=== PATIENT | male | born 1985 | race Caucasian/White ===

== ENCOUNTER 2016-07-27 14:26 | Emergency (ER) | payer SELFPAY ==
[~2016-07-27] VITALS: Ht 172.7 cm; Wt 63.5 kg
[2016-07-27] MEDS ORDERED: NKM (14:58)
[2016-07-27 15:19] VITALS: BP 142/82
--- NOTE | 2016-07-27 15:53 | Emergency Room Report ---
History of Present Illness General Chief Complaint: Skin Rash/Abscess Source: Patient Present Illness HPI 30-year-old male presents the emergency department complaining of scrotal infection x2 weeks. Patient erythema, swelling, pimples about the right side of the scrotum and right thigh. he reports history of MRSA. Patient denies fevers or chills patient denies recent unprotected intercourse patient denies penile discharge, hematuria, dysuria. he reports recent travel to the [facility]. Denies testicular pain. Pt. rates his pain as 6/10 in severity and describes burning/irritative symptoms. denies hx of STI. he denies abdominal pain, nausea or vomiting. denies immune compromise. Denies CP, Palpitations, LOC , AMS, dizziness, Changes in Vision, Sensation, paresthesias, or a sudden severe headache. Allergies: Coded Allergies: No Known Allergies (Unverified , 07/27/16) Patient History Past Medical History: see triage record Past Surgical History: none Pertinent Family History: none Immunizations: UTD Reviewed Nursing Documentation: PMH: Agreed, PSxH: Agreed Review of Systems All Other Systems: negative except mentioned in HPI Physical Exam Vital Signs Date Time Temp Pulse Resp B/P Pulse Ox O2 Delivery O2 Flow Rate FiO2 07/27/16 14:50 98.1 95 16 142/82 100 Room Air Sp02 EP Interpretation: reviewed, normal General Appearance: no apparent distress, alert, GCS 15, non-toxic Head: normocephalic, atraumatic Eyes: bilateral eye PERRL, bilateral eye normal inspection ENT: hearing grossly normal, normal pharynx, no angioedema, normal voice Neck: full range of motion, supple/symm/no masses Respiratory: chest non-tender, lungs clear, normal breath sounds, speaking full sentences Cardiovascular #1: regular rate, rhythm, no edema Gastrointestinal: normal bowel sounds, non tender, soft, no guarding, no rebound Rectal: deferred Genitourinary: normal inspection, no CVA tenderness Musculoskeletal: back normal, gait/station normal, normal range of motion, non- tender, no calf tenderness Neurologic: alert, oriented x3, responsive, motor strength/tone normal, sensory intact, speech normal Psychiatric: judgement/insight normal, memory normal, mood/affect normal, no suicidal/homicidal ideation Skin: normal color, no rash, warm/dry, well hydrated, other - Multiple pustules noted on the right inner thigh in addition to inguinal area and on the right side of the testicle. There is no testicular pain or swelling, mild swelling to the skin in the right inguinal area. No increased temperature palpation, each pustule has surrounding erythema. Tender palpable right inguinal lymphadenopathy. Lymphatic: inguinal node tender (R) Medical Decision Making PA Attestation Dr. gamez is my supervising Physician whom patient management has been discussed with. Diagnostic Impression: Primary Impression: Pustular folliculitis Additional Impression: Staphylococcus aureus superficial folliculitis ER Course Pt. presents to the ED c/o Skin infection of the right groin/ testicle and thigh x 2 weeks. with hx of MRSA. Ddx considered but are not limited to cellulitis, folliculitis, epididymitis, torsion, STI, LGV, shingles, herpes Vital signs: are WNL, pt. is afebrile H&PE are most consistent with folliculitis. non vesicular or ulcerative in appearance viral infection not suspected at this time with current presentation. ORDERS: none required at this time, the diagnosis is clinical ED INTERVENTIONS: -500mg Keflex -500mg Bactrim -Petrolatum Gauze and wound dressing applied by oracle technical developer. DISCHARGE: At this time pt. is stable for d/c to home. Will provide printed patient care instructions, and any necessary prescriptions. Care plan and follow up instructions have been discussed with the patient prior to discharge. Last Vital Signs Date Time Temp Pulse Resp B/P Pulse Ox O2 Delivery O2 Flow Rate FiO2 07/27/16 15:19 98.1 80 16 142/82 100 Room Air Disposition: HOME, SELF-CARE Condition: Stable Scripts Bacitracin/Polymyxin B Sulfate (BACITRACIN-POLYMYXIN OINTMENT) 28.35 Gm Oint...g. 1 APPLIC TP BID, #28.3 GM Prov: Radha Gant P.A. 07/27/16 Acetaminophen* (TYLENOL EXTRA STRENGTH*) 500 Mg Tablet 500 MG ORAL Q6H, #30 TAB 0 Refills Prov: Radha Gant P.A. 07/27/16 Trimethoprim/Sulfamethoxazole 160/800* (BACTRIM DS TABLET*) 1 Each Tablet 1 TAB ORAL DAILY for 7 Days, #14 TAB Prov: Radha Gant P.A. 07/27/16 Cephalexin* (KEFLEX*) 500 Mg Capsule 500 MG ORAL EVERY 12 HOURS for 7 Days, #14 CAP 0 Refills Prov: Radha Gant 07/27/16 Referrals: NOT CHOSEN IPA/MD,REFERRING (PCP) Patient Instructions: Folliculitis Additional Instructions: Take medications as directed. Follow up with PCP in 3-5 days Return sooner to ED if new symptoms occur, or current symptoms become worse. Radha Gant Jul 27, 2016 15:53
[2016-07-27] MEDS ORDERED: CEPHALEXIN500 MG ORAL (15:54)
[2016-07-27] MEDS ORDERED: BACTRIM DS TAB1 EAC1 ORAL (15:55)
[2016-07-27] MEDS ORDERED: Cephalexin 500mg cap ORAL ONE (16:00)
[2016-07-27] MEDS ORDERED: Bactrim DS (160mg/800mg) tab ORAL ONE (16:00)
[2016-07-27 16:05] VITALS: BP 142/82
[2016-07-27] MEDS ORDERED: TYLENOL EXTRA500 MG ORAL (16:10)
[2016-07-27] MEDS ORDERED: BACITRACIN-P28.35 GM TP (16:10)
== END 2016-07-27 16:15 | disposition home or self-care (01) ==
LOC: EMR 15:37
DX: L01.02 Bockhart's impetigo (principal); L73.8 Other specified follicular disorders
CPT/HCPCS: 99282

== ENCOUNTER 2016-08-18 16:37 | Emergency (ER) | payer SELFPAY ==
[~2016-08-18] VITALS: Ht 175.3 cm; Wt 65.8 kg
[~2016-08-18 16:37] MED LIST: BACITRACIN-P28.35 GM TP; BACTRIM DS TAB1 EAC1 ORAL; CEPHALEXIN500 MG ORAL; NKM; TYLENOL EXTRA500 MG ORAL
[2016-08-18 16:52] VITALS: BP 144/89
--- NOTE | 2016-08-18 17:25 | Emergency Room Report ---
History of Present Illness General Chief Complaint: Allergic Reaction Source: Patient Present Illness HPI This patient states that he feels anxious and short of breath. He is really unable to give and articulate history. He does admit that he has been doing "Tea" (when I looked this up this means methamphetamine). He states that he believes he has tracers in his body. He is paranoid. He has no other complaints. Allergies: Coded Allergies: Bumble Bee (Verified Allergy, Unknown, 08/18/16) Honey Bee (Verified Allergy, Unknown, 08/18/16) Patient History Past Surgical History: none Social History: Reports: drug use Reviewed Nursing Documentation: PMH: Agreed, PSxH: Agreed Review of Systems All Other Systems: negative except mentioned in HPI Physical Exam Vital Signs Date Time Temp Pulse Resp B/P Pulse Ox O2 Delivery O2 Flow Rate FiO2 08/18/16 16:38 98.2 120 28 123/88 100 Room Air Sp02 EP Interpretation: reviewed, normal General Appearance: no apparent distress, alert, GCS 15, non-toxic Head: normocephalic, atraumatic Eyes: bilateral eye PERRL, bilateral eye normal inspection ENT: hearing grossly normal, normal pharynx, no angioedema, normal voice Neck: full range of motion, supple/symm/no masses Respiratory: chest non-tender, lungs clear, normal breath sounds, speaking full sentences Cardiovascular #1: no edema, tachycardia Gastrointestinal: normal bowel sounds, non tender, soft, non-distended, no guarding, no rebound Rectal: deferred Musculoskeletal: back normal, gait/station normal, normal range of motion, non- tender Neurologic: alert, oriented x3, responsive, motor strength/tone normal, sensory intact, speech normal Psychiatric: mood/affect normal, anxious, other - paranoid, intoxicated Skin: normal color, no rash, warm/dry, well hydrated Medical Decision Making Diagnostic Impression: Primary Impression: Amphetamine abuse ER Course This patient presented with physical exam and history consistent with drug abuse and intoxication. Laboratory workup to include CBC, CMP, urinalysis and urine drug screen showed positive for amphetamines. The patient was allowed to rest and detox. Patient is not suicidal homicidal. The patient is discharged. The patient was educated on the dangers of drug abuse and given resources on the local drug rehabilitation programs. Patient was given return precautions and followup instructions. Labs Test 08/18/16 17:20 White Blood Count 8.3 K/UL (4.8-10.8) Red Blood Count 4.67 M/UL (4.70-6.10) Hemoglobin 14.7 G/DL (14.2-18.0) Hematocrit 42.5 % (42.0-52.0) Mean Corpuscular Volume 91 FL (80-99) Mean Corpuscular Hemoglobin 31.5 PG (27.0-31.0) Mean Corpuscular Hemoglobin Concent 34.6 G/DL (32.0-36.0) Red Cell Distribution Width 11.6 % (11.6-14.8) Platelet Count 268 K/UL (150-450) Mean Platelet Volume 6.0 FL (6.5-10.1) Neutrophils (%) (Auto) 72.4 % (45.0-75.0) Lymphocytes (%) (Auto) 16.1 % (20.0-45.0) Monocytes (%) (Auto) 10.1 % (1.0-10.0) Eosinophils (%) (Auto) 0.2 % (0.0-3.0) Basophils (%) (Auto) 1.1 % (0.0-2.0) Sodium Level 139 mEQ/L (135-145) Potassium Level 3.6 mEQ/L (3.4-4.9) Chloride Level 98 mEQ/L (98-107) Carbon Dioxide Level 24 mEQ/L (20-30) Anion Gap 17 (5-15) Blood Urea Nitrogen 11 mg/dL (7-23) Creatinine 1.2 mg/dL (0.7-1.2) Estimat Glomerular Filtration Rate > 60 mL/min (>60) Glucose Level 116 mg/dL (74-106) Calcium Level 9.4 mg/dL (8.6-10.2) Total Bilirubin 0.3 mg/dL (0.0-1.2) Aspartate Amino Transf (AST/SGOT) 25 U/L (5-40) Alanine Aminotransferase (ALT/SGPT) 18 U/L (3-41) Alkaline Phosphatase 55 U/L (40-129) Total Protein 7.3 g/dL (6.6-8.7) Albumin 4.8 g/dL (3.5-5.2) Globulin 2.5 g/dL Albumin/Globulin Ratio 1.9 (1.0-2.7) Thyroid Stimulating Hormone (TSH) 1.340 uIU/mL (0.300-4.500) Urine Opiates Screen Negative (NEGATIVE) Urine Barbiturates Screen Negative (NEGATIVE) Phencyclidine (PCP) Screen Negative (NEGATIVE) Urine Amphetamines Screen Positive (NEGATIVE) Urine Benzodiazepines Screen Negative (NEGATIVE) Urine Cocaine Screen Negative (NEGATIVE) Urine Marijuana (THC) Screen Negative (NEGATIVE) Serum Alcohol < 10 mg/dL EKG Diagnostic Results Rate: tachycardiac ST Segments: no acute changes Other Impression s.tachycardia Rhythm Strip Diag. Results EP Interpretation: yes Rate: 100's Rhythm: no PVC's, no ectopy Other Impression S.tachycardia Last Vital Signs Date Time Temp Pulse Resp B/P Pulse Ox O2 Delivery O2 Flow Rate FiO2 08/18/16 16:52 98.2 109 28 144/89 100 Room Air Disposition: HOME, SELF-CARE Condition: Improved DIRK PERES D.O. Aug 18, 2016 17:25
[2016-08-18 17:34] LABS: BASOPHILS % (AUTO) 1.1 % (0.0-2.0); EOSINOPHILS % (AUTO) 0.2 % (0.0-3.0); LYMPHOCYTES % (AUTO) 16.1 % (20.0-45.0); MEAN CORPUSCULAR HEMOGLOBIN 31.5 PG (27.0-31.0); MEAN CORPUSCULAR HGB CONC 34.6 G/DL (32.0-36.0); MEAN CORPUSCULAR VOLUME 91 FL (80-99); MONOCYTES % (AUTO) 10.1 % (1.0-10.0); NEUTROPHILS % (AUTO) 72.4 % (45.0-75.0); PLATELET COUNT 268 K/UL (150-450); RED BLOOD COUNT 4.67 M/UL (4.70-6.10); RED CELL DISTRIBUTION WIDTH 11.6 % (11.6-14.8); WHITE BLOOD COUNT 8.3 K/UL (4.8-10.8)
[2016-08-18 17:52] LABS: ALANINE AMINOTRANSFERASE 18 U/L (3-41); ALBUMIN/GLOBULIN RATIO 1.9 (1.0-2.7); ALCOHOL < 10 mg/dL; ANION GAP 17 (5-15); ASPARTATE AMINO TRANSFERASE 25 U/L (5-40); CALCIUM 9.4 mg/dL (8.6-10.2); CARBON DIOXIDE 24 mEQ/L (20-30); CHLORIDE 98 mEQ/L (98-107); CREATININE 1.2 mg/dL (0.7-1.2); GLOMERULAR FILTRATION RATE > 60 mL/min (>60); HEMOLYSIS 8; POTASSIUM 3.6 mEQ/L (3.4-4.9); SODIUM 139 mEQ/L (135-145); TOTAL PROTEIN 7.3 g/dL (6.6-8.7)
[2016-08-18 20:33] VITALS: BP 146/100
[2016-08-18 21:00] VITALS: BP 145/99
--- NOTE | 2016-08-19 14:34 | Cardiology Report ---
APPROVED REPORT EKG Measurement Heart [id number] Sinus tachycardia Nonspecific T wave abnormality Abnormal ECG
== END 2016-08-18 21:08 | disposition home or self-care (01) ==
LOC: EMR 17:56
DX: F15.10 Other stimulant abuse, uncomplicated (principal); Z91.030 Bee allergy status
CPT/HCPCS: 36415; 80053; 80300; 84443; 85025; 93005; 99284; G0480; 80329